=== PATIENT | female | born 1940 | race Caucasian/White ===

== ENCOUNTER 2020-05-02 15:51 | Inpatient (IN) | payer OTHER ==
[~2020-05-02] VITALS: Ht 147.3 cm; Wt 70.3 kg
[~2020-05-02 15:51] MED LIST: AVAPRO300 MG; CEFTIN250 MG/5 M PO; OSEL75CA PO; PREDNISOLONE5 G1; SYNTHROID100 MCG; TOPROL XL100 M1; TUSSIONEX PENN115 ML PO; ULTRACET
[2020-05-02] MEDS ORDERED: METOPROLOL SUC100 MG PO (16:11)
[2020-05-02] MEDS ORDERED: LEVOTHYROXINE100 MCG PO (16:11)
[2020-05-02] MEDS ORDERED: IRBESARTAN300 MG PO (16:11)
[2020-05-02] MEDS ORDERED: RAYOS5 MG PO (16:12)
[2020-05-02] MEDS ORDERED: TRAM1TAB98 PO (16:12)
== END 2020-05-06 14:26 | disposition home or self-care (01) | DRG 292 ==
LOC: ER 15:51 → MEDI 20:13 → MEDJ 05-05 12:06
PROVIDERS: ADMIT Internal Medicine; ATTEND Internal Medicine
DX: I11.0 Hypertensive heart disease with heart failure (principal); I16.9 Hypertensive crisis, unspecified; I50.9 Heart failure, unspecified; E03.9 Hypothyroidism, unspecified; M79.7 Fibromyalgia

== ENCOUNTER 2020-12-20 07:36 | Inpatient (IN) | payer OTHER ==
[~2020-12-20] VITALS: Ht 154.9 cm; Wt 90.7 kg
[~2020-12-20 07:36] MED LIST changes: +IRBESARTAN300 MG PO; +LEVOTHYROXINE100 MCG PO; +METOPROLOL SUC100 MG PO; +RAYOS5 MG PO; +TRAM1TAB98 PO
[2020-12-20] MEDS ORDERED: FLEXERIL (07:51)
[2020-12-20] MEDS ORDERED: LYRICA100 MG (07:52)
--- NOTE | 2020-12-20 07:52 | NUR ---
PACIENTE ALERTA Y ORIENTADA PORE REBECA. REFIERE DIFICULTAD RESPIRATORIOA DESDE RUBIO EN LA NOCHE. PACIENTE CON PRESION EN NO SE SUJATA MEDICAMENTOS DE LA PRRESION SE ORIENTA A RENEE LOS MISMOS AL MOMENTO, FAMILIAR TIENE MEDICAMENTOS CON WINIFRED. SE COLOCA PACIENTE EN AREA DE ASMA.
--- NOTE | 2020-12-20 09:06 | NUR ---
PTE EVALUADA POR DR. SAAVERDA QUIEN ORDENA TRATAMIENTO. PACIENTE TRANSFERIDA POR PERSONAL DE JOELLEN X PARA ESTUDIO Y LA MISMA DE DESPLOMA EN EL CUARTO DE JOELLEN X, RECIBIENDO TRAUMA EN AREA OCCIPITAL. PACIENTE ALERTA Y ORIENTADA X3, AL MOMENTO DE CAIDA LA MISMA NO PERDIO CONOCIMIENTO. SE UBICA A PTE EN DIONE PARA TRATAMIENTO, EVALUADA [place] POR DR. SAAVEDRA. RN. Y. SANDOVAL CANALIZA A PTE Y COLECTA MUESTRAS DE LABORATORIO BAJO MEDIDAS ASEPTICAS. ADMINISTRA MEDICAMENTOS YAS ORDEN MEDICA LOS CUALES AL MOMENTO NO PRESENTA REACCION ADVERSA.
--- NOTE | 2020-12-20 15:43 | NUR ---
SE RECIBE PTE FEMENINA ALERTA Y ORIENTADA EN LAS REBECA ESFERAS DEL TURNO ANTERIOR. SE OSBERVA CON BUEN PATRON RESPIRATORIO Y N REFIERE DOLOR AL MOMENTO. VENOPUNCION PATENTE TOMAS DE EDEMA Y ERITEMA EN H/L. PTE EN DIONE BAJA CON BARANDAS ELEVADAS Y FRENOS COLOCADOS POR SEGURIDAD. PENDIENTE CONSULTA CON .
== END 2021-01-05 18:27 | disposition home health service (06) | DRG 291 ==
LOC: ER 07:36 → SURH 17:42 → MEDJ 17:42 → SURH 12-22 06:07
PROVIDERS: ADMIT Internal Medicine; ATTEND Internal Medicine
PROC: 4A033R1 Measurement of Arterial Saturation, Peripheral, Percutaneous Approach (ICD-10-PCS; principal; 2020-12-20)
PROC: 4A12X4Z Monitoring of Cardiac Electrical Activity, External Approach (ICD-10-PCS; 2020-12-20)
PROC: 3E0F7SF Introduction of Other Gas into Respiratory Tract, Via Natural or Artificial Opening (ICD-10-PCS; 2020-12-21)
PROC: 02HV33Z Insertion of Infusion Device into Superior Vena Cava, Percutaneous Approach (ICD-10-PCS; 2020-12-22)
PROC: 30233N1 Transfusion of Nonautologous Red Blood Cells into Peripheral Vein, Percutaneous Approach (ICD-10-PCS; 2021-01-01)
DX: I11.0 Hypertensive heart disease with heart failure (principal); K85.80 Other acute pancreatitis without necrosis or infection; G92 Toxic encephalopathy; J45.901 Unspecified asthma with (acute) exacerbation; I16.9 Hypertensive crisis, unspecified; N39.0 Urinary tract infection, site not specified; N17.8 Other acute kidney failure; I47.1 Supraventricular tachycardia; J44.1 Chronic obstructive pulmonary disease with (acute) exacerbation; E87.0 Hyperosmolality and hypernatremia; I50.33 Acute on chronic diastolic (congestive) heart failure; E03.8 Other specified hypothyroidism; Z20.822 Contact with and (suspected) exposure to COVID-19; M79.7 Fibromyalgia; R09.02 Hypoxemia; T43.595A Adverse effect of other antipsychotics and neuroleptics, initial encounter; D64.9 Anemia, unspecified; E87.6 Hypokalemia; D69.49 Other primary thrombocytopenia; Z74.01 Bed confinement status; S00.03XA Contusion of scalp, initial encounter; W18.30XA Fall on same level, unspecified, initial encounter
CPT/HCPCS: 70544